=== PATIENT | female | born 1990 | race African-American/Black ===

== ENCOUNTER 2017-08-15 06:28 | Inpatient (IN) | payer OTHER ==
[2017-08-15] MEDS ORDERED: ANCEF VIAL 1 GM 1 GM in NS 50 ML IV + SPIKE MINIBAG* 50 ML IV PRN (06:57)
[2017-08-15] MEDS ORDERED: D5 1/2 NS 1000 ML 1,000 ML IV SCH (07:00)
[2017-08-15] MEDS ORDERED: NS 100 ML IV 100 ML IV ONE ×2 (07:05→07:09)
[2017-08-15] MEDS ORDERED: ANCEF VIAL 1 GM ONE (07:09)
[2017-08-15 07:24] LABS: BASOPHILS # (AUTO) 0.1 X10^3/uL (0.0-0.1); BASOPHILS % (AUTO) 0.7 % (0.2-1.0); EOSINOPHILS % (AUTO) 0.4 % (0.9-2.9); HEMATOCRIT 36.5 % (36.0-47.0); HEMOGLOBIN 11.9 g/dL (12.0-16.0); LYMPHOCYTES # (AUTO) 2.9 X10^3/uL (1.3-2.9); LYMPHOCYTES % (AUTO) 24.7 % (21.0-51.0); MEAN CORPUSCULAR HEMOGLOBIN 23.9 pg (27.0-34.0); MEAN CORPUSCULAR HGB CONC 32.4 g/dL (33.0-35.0); MEAN CORPUSCULAR VOLUME 73.7 fL (80.0-100.0); MEAN PLATELET VOLUME 8.2 fL (7.4-11.0); MONOCYTES # (AUTO) 0.8 x10^3/uL (0.3-0.8); NEUTROPHILS # (AUTO) 7.8 x10^3/uL (2.2-4.8); NEUTROPHILS % (AUTO) 67.2 % (42.0-75.0); PLATELET COUNT 252 X10^3/uL (150.0-450.0); RED BLOOD COUNT 4.96 X10^6/uL (3.5-5.4); RED CELL DISTRIBUTION WIDTH 16.3 % (11.6-16.5); WHITE BLOOD COUNT 11.6 X10^3/uL (3.6-10.0)
[2017-08-15 07:36] LABS: ALANINE AMINOTRANSFERASE 22 Units/L (12-78); ALBUMIN 2.7 g/dL (3.4-5.0); ALKALINE PHOSPHATASE 187 Units/L (46-116); ASPARTATE AMINO TRANSFERASE 16 Units/L (15-37); BLOOD UREA NITROGEN 5 mg/dL (7-18); CALCIUM 9.1 mg/dL (8.5-10.1); CARBON DIOXIDE 21.5 mmol/L (21-32); CHLORIDE 104 mmol/L (98-107); COR CA(FOR HYPOALB) 10.1 mg/dL (8.5-10.1); CREATININE 0.65 mg/dL (0.55-1.02); SODIUM 136 mmol/L (136-145); TOTAL PROTEIN 7.1 g/dL (6.4-8.2); eGFR BLACK RACES > 60 (>60); eGFR NON BLACK RACES > 60 (>60)
[2017-08-15 07:37] LABS: HYPOCHROMASIA SLIGHT; PLATELET MORPHOLOGY COMMENT NORMAL (NORMAL)
[2017-08-15] MEDS ORDERED: LR 1000 ML IV 1,000 ML IV ONE (08:24)
[2017-08-15] MEDS ORDERED: D5 1/2 NS 1L W PITOCIN 20 UNITS/L 20 UNITS/1,000 ML BAG IV ONE (08:48)
[2017-08-15] MEDS ORDERED: DURAMORPH ONE (08:48)
[2017-08-15 09:29] LABS: BILIRUBIN,URINE NEGATIVE (NEGATIVE); BLOOD/HEMOGLOBIN,URINE 1+ (NEGATIVE); GLUCOSE, URINE 3+ (NEGATIVE); KETONES,URINE 3+ (NEGATIVE); LEUKOCYTE ESTERASE ,URINE 1+ (NEGATIVE); NITRITES,URINE NEGATIVE (NEGATIVE); PROTEIN,URINE 2+ (NEGATIVE); UROBILINOGEN,URINE NORMAL (NORMAL)
[2017-08-15] MEDS ORDERED: NS IRRIGATION 1000 ML 1,000 ML IR ONE (09:30)
[2017-08-15] MEDS ORDERED: ZOFRAN INJ 4 MG VIAL IVP PRN (09:47)
[2017-08-15] MEDS ORDERED: PHENERGAN INJ 25 MG IVP PRN (09:47)
[2017-08-15] MEDS ORDERED: BENADRYL INJ 50 MG VIAL IVP PRN (09:47)
[2017-08-15] MEDS ORDERED: REGLAN INJ 10 MG VIAL IVP PRN ×2 (09:47→10:13)
[2017-08-15] MEDS ORDERED: TORADOL 30 MG VIAL ONE (09:59)
[2017-08-15 10:02] LABS: APPEARANCE,URINE CLEAR (CLEAR); COLOR,URINE YELLOW (YELLOW)
[2017-08-15] MEDS ORDERED: NARCAN INJ IVP PRN ×2 (10:13)
[2017-08-15] MEDS ORDERED: PERCOCET TAB 5/325 MG PO PRN (10:13)
[2017-08-15] MEDS ORDERED: MYLICON TAB 80 MG CHEW PO PRN (10:13)
[2017-08-15] MEDS ORDERED: TORADOL 30 MG VIAL IVP PRN (10:13)
[2017-08-15] MEDS ORDERED: D5 1/2 NS 1000 ML 1,000 ML with PITOCIN 20 UNITS IV SCH ×2 (10:13)
[2017-08-15 10:29] LABS: RBC,URINE 0 - 3 /HPF (NEGATIVE); SQUAMOUS EPITHELIAL CELL,UR MODERATE /HPF (NEGATIVE)
[2017-08-15 10:30] LABS: BACTERIA,URINE NEGATIVE /HPF (NEGATIVE)
[2017-08-15 10:31] LABS: AMORPHOUS SEDIMENT,UR TRACE /HPF (NEGATIVE); MUCUS,URINE MODERATE /HPF (NEGATIVE)
[2017-08-15] MEDS ORDERED: DIPRIVAN VIAL ONE (15:42)
[2017-08-15] MEDS ORDERED: REGLAN INJ 10 MG VIAL ONE (15:42)
[2017-08-15] MEDS ORDERED: ZOFRAN INJ 4 MG VIAL ONE (15:42)
[2017-08-15] MEDS ORDERED: PITOCIN ONE (15:42)
[2017-08-15] MEDS: BENADRYL INJ 50 MG VIAL IVP PRN ×2 (16:08→21:02)
[2017-08-15] MEDS: ZOFRAN INJ 4 MG VIAL IVP SCH ×2 (17:48→22:55)
[2017-08-15] MEDS: ZANTAC PO SCH (21:01)
[2017-08-16] MEDS: ZOFRAN INJ 4 MG VIAL IVP SCH (02:42)
[2017-08-16] MEDS: MOTRIN TAB 800 MG PO PRN (03:45)
[2017-08-16 06:11] LABS: HEMATOCRIT 33.1 % (36.0-47.0); HEMOGLOBIN 10.8 g/dL (12.0-16.0)
[2017-08-16] MEDS: PRENATAL PLUS PO SCH (08:12)
[2017-08-16] MEDS: ZANTAC PO SCH ×2 (08:12→20:23)
[2017-08-16] MEDS ORDERED: MOTRIN TAB 800 MG PO PRN (08:46)
[2017-08-16] MEDS: COLACE CAP 100 MG PO SCH ×2 (09:51→20:23)
[2017-08-16] MEDS: PERCOCET TAB 5/325 MG PO PRN ×2 (13:54→19:22)
[2017-08-16] MEDS: BACTROBAN OINT TOP SCH ×2 (13:54→21:59)
[2017-08-17] MEDS: PERCOCET TAB 5/325 MG PO PRN (00:47)
[2017-08-17] MEDS: MOTRIN TAB 800 MG PO PRN (03:46)
[2017-08-17] MEDS: BACTROBAN OINT TOP SCH (05:13)
[2017-08-17] MEDS: ZANTAC PO SCH (08:09)
[2017-08-17] MEDS: PRENATAL PLUS PO SCH (08:09)
[2017-08-17] MEDS: COLACE CAP 100 MG PO SCH (08:09)
[2017-08-17 08:12] VITALS: BP 110/58
== END 2017-08-17 11:15 | disposition home or self-care (01) | DRG 775 ==
LOC: LD 06:28 → MED/SURG 10:13
PROVIDERS: ADMIT Obstetrics & Gynecology Obstetrics; ATTEND Obstetrics & Gynecology Obstetrics
PROC: 0UB70ZZ Excision of Bilateral Fallopian Tubes, Open Approach (ICD-10-PCS; 2017-08-15)
PROC: 10D00Z1 Extraction of Products of Conception, Low, Open Approach (ICD-10-PCS; principal; 2017-08-15 08:30)
DX: O34.211 Maternal care for low transverse scar from previous cesarean delivery (principal); Z37.0 Single live birth; N85.8 Other specified noninflammatory disorders of uterus; Z30.2 Encounter for sterilization; O24.420 Gestational diabetes mellitus in childbirth, diet controlled; O99.824 Streptococcus B carrier state complicating childbirth; B95.1 Streptococcus, group B, as the cause of diseases classified elsewhere; Z3A.39 39 weeks gestation of pregnancy
CPT/HCPCS: 36415; 80053; 80307; 81001; 85014; 85018; 85025; 86592; 86850; 86900; 86901; 94640; A4222; S0197; G0434; J0690; J1200; J1885; J2405; J2590; J2765; J3490; J7042; J7120